=== PATIENT | female | born 1995 | race Caucasian/White ===

== ENCOUNTER 2018-09-20 02:14 | Emergency (ER) | payer OTHER ==
[2018-09-20] MEDS: METHYLPREDNISOLONE 125 MG INJ IM (03:05)
[2018-09-20] MEDS: DIPHENHYDRAMINE 25 MG CAP PO (03:05)
== END 2018-09-20 05:43 | disposition home or self-care (01) ==
LOC: FTE 02:14
DX: R22.0 Localized swelling, mass and lump, head (principal); T39.395A Adverse effect of other nonsteroidal anti-inflammatory drugs [NSAID], initial encounter; Z87.891 Personal history of nicotine dependence
CPT/HCPCS: 96372; 99284-25; J2930

== ENCOUNTER 2018-10-31 05:08 | Emergency (ER) | payer OTHER | END 2018-10-31 05:35 | disposition home or self-care (01) | LOC: FTE 05:08 | DX: J02.0 Streptococcal pharyngitis (principal); F17.210 Nicotine dependence, cigarettes, uncomplicated | CPT/HCPCS: 99283; Z7502 ==

== ENCOUNTER 2019-06-05 16:23 | Emergency (ER) | payer SELFPAY, OTHER | END 2019-06-05 18:17 | disposition home or self-care (01) | LOC: E/R 18:17 → FTE 16:23 | DX: R51 Headache (principal) | CPT/HCPCS: 70450; 99284-25 ==